=== PATIENT | female | born 1935 | race Caucasian/White ===

== ENCOUNTER 2016-11-04 09:58 | Outpatient (CLI) | payer MEDICARE, OTHER | END 2016-11-04 10:00 | LOC: LAB 09:58 | PROVIDERS: ATTEND Internal Medicine | DX: I82.599 Chronic embolism and thrombosis of other specified deep vein of unspecified lower extremity (principal); Z79.01 Long term (current) use of anticoagulants | CPT/HCPCS: 36415; 85610 ==

== ENCOUNTER 2016-11-29 09:25 | Outpatient (CLI) | payer MEDICARE, OTHER | END 2016-11-29 09:26 | LOC: LAB 09:25 | PROVIDERS: ATTEND Internal Medicine | DX: Z51.81 Encounter for therapeutic drug level monitoring (principal); Z79.01 Long term (current) use of anticoagulants; I82.599 Chronic embolism and thrombosis of other specified deep vein of unspecified lower extremity | CPT/HCPCS: 36415; 85610 ==

== ENCOUNTER 2016-12-27 13:17 | Outpatient (CLI) | payer MEDICARE, OTHER | END 2016-12-27 13:20 | LOC: LAB 13:17 | PROVIDERS: ATTEND Internal Medicine | DX: Z51.81 Encounter for therapeutic drug level monitoring (principal); Z79.01 Long term (current) use of anticoagulants; I82.599 Chronic embolism and thrombosis of other specified deep vein of unspecified lower extremity | CPT/HCPCS: 36415; 85610 ==

== ENCOUNTER 2017-02-24 10:02 | Outpatient (CLI) | payer MEDICARE, OTHER | END 2017-02-24 10:03 | LOC: LAB 10:02 | PROVIDERS: ATTEND Internal Medicine | DX: Z51.81 Encounter for therapeutic drug level monitoring (principal); Z79.01 Long term (current) use of anticoagulants; I82.599 Chronic embolism and thrombosis of other specified deep vein of unspecified lower extremity | CPT/HCPCS: 36415; 85610 ==

== ENCOUNTER 2017-03-21 09:22 | Outpatient (CLI) | payer MEDICARE, OTHER | END 2017-03-21 09:23 | LOC: LAB 09:22 | PROVIDERS: ATTEND Internal Medicine | DX: I82.599 Chronic embolism and thrombosis of other specified deep vein of unspecified lower extremity (principal); Z79.01 Long term (current) use of anticoagulants | CPT/HCPCS: 36415; 85610 ==

== ENCOUNTER 2017-04-04 09:13 | Outpatient (CLI) | payer MEDICARE, OTHER | END 2017-04-04 09:14 | LOC: LAB 09:13 | PROVIDERS: ATTEND Internal Medicine | DX: I82.599 Chronic embolism and thrombosis of other specified deep vein of unspecified lower extremity (principal); Z79.01 Long term (current) use of anticoagulants | CPT/HCPCS: 36415; 85610 ==

== ENCOUNTER 2017-05-01 09:45 | Outpatient (CLI) | payer MEDICARE, OTHER | END 2017-05-01 09:46 | LOC: LAB 09:45 | PROVIDERS: ATTEND Internal Medicine | DX: I82.599 Chronic embolism and thrombosis of other specified deep vein of unspecified lower extremity (principal); Z79.01 Long term (current) use of anticoagulants | CPT/HCPCS: 36415; 85610 ==

== ENCOUNTER 2017-05-30 09:20 | Outpatient (CLI) | payer MEDICARE, OTHER | END 2017-05-30 09:21 | LOC: LAB 09:20 | PROVIDERS: ATTEND Internal Medicine | DX: I82.599 Chronic embolism and thrombosis of other specified deep vein of unspecified lower extremity (principal); Z79.01 Long term (current) use of anticoagulants | CPT/HCPCS: 36415; 85610 ==

== ENCOUNTER 2017-07-02 10:20 | Outpatient (CLI) | payer MEDICARE, OTHER | END 2017-07-02 10:21 | LOC: LAB 10:20 | PROVIDERS: ATTEND Internal Medicine | DX: I82.599 Chronic embolism and thrombosis of other specified deep vein of unspecified lower extremity (principal); Z79.01 Long term (current) use of anticoagulants | CPT/HCPCS: 36415; 85610 ==

== ENCOUNTER 2017-07-24 13:14 | Outpatient (CLI) | payer MEDICARE, OTHER | END 2017-07-24 13:15 | LOC: LAB 13:14 | PROVIDERS: ATTEND Internal Medicine | DX: I82.599 Chronic embolism and thrombosis of other specified deep vein of unspecified lower extremity (principal); Z79.01 Long term (current) use of anticoagulants | CPT/HCPCS: 36415; 85610 ==

== ENCOUNTER 2017-08-22 09:40 | Outpatient (CLI) | payer MEDICARE, OTHER | END 2017-08-22 09:50 | LOC: LAB 09:40 | PROVIDERS: ATTEND Internal Medicine | DX: I82.599 Chronic embolism and thrombosis of other specified deep vein of unspecified lower extremity (principal); Z79.01 Long term (current) use of anticoagulants | CPT/HCPCS: 36415; 85610 ==

== ENCOUNTER 2017-09-04 13:29 | Outpatient (CLI) | payer MEDICARE, OTHER | END 2017-09-04 13:30 | LOC: LAB 13:29 | PROVIDERS: ATTEND Internal Medicine | DX: I82.599 Chronic embolism and thrombosis of other specified deep vein of unspecified lower extremity (principal); Z79.01 Long term (current) use of anticoagulants | CPT/HCPCS: 36415; 85610 ==

== ENCOUNTER → 2017-10-02 | Outpatient (CLI) | payer MEDICARE, OTHER | LOC: LAB 09:54 | PROVIDERS: ATTEND Internal Medicine | DX: I82.599 Chronic embolism and thrombosis of other specified deep vein of unspecified lower extremity (principal); Z79.01 Long term (current) use of anticoagulants | CPT/HCPCS: 36415; 85610 ==

== ENCOUNTER 2018-04-06 16:18 | Outpatient (CLI) | payer MEDICARE, OTHER | END 2018-04-06 16:20 | LOC: LABRHC 16:18 | PROVIDERS: ATTEND Family Medicine | DX: R30.0 Dysuria (principal) | CPT/HCPCS: 87086 ==

== ENCOUNTER 2019-04-23 08:59 | Outpatient (CLI) | payer MEDICARE, OTHER | END 2019-04-23 09:00 | LOC: LAB 08:59 | PROVIDERS: ATTEND Family Medicine | DX: N39.41 Urge incontinence (principal) | CPT/HCPCS: 87086 ==

== ENCOUNTER 2019-06-22 08:54 | Outpatient (CLI) | payer MEDICARE, OTHER ==
[2019-06-22 09:23] LABS: A1C 6.1 % (<5.7)
[2019-06-22 09:28] LABS: eGFR (Non-African) > 60
[2019-06-22 09:29] LABS: HDL 66 mg/dL (>40)
== END 2019-06-22 08:56 ==
LOC: LAB 08:54
PROVIDERS: ATTEND Family Medicine
DX: E11.9 Type 2 diabetes mellitus without complications (principal); R30.0 Dysuria
CPT/HCPCS: 36415; 80053; 80061; 83036; 87086

== ENCOUNTER 2019-08-24 08:38 | Outpatient (CLI) | payer MEDICARE, OTHER | END 2019-08-24 08:43 | LOC: LAB 08:38 | PROVIDERS: ATTEND Family Medicine | DX: R30.0 Dysuria (principal) | CPT/HCPCS: 87086 ==

== ENCOUNTER 2019-08-31 08:31 | Outpatient (CLI) | payer MEDICARE, OTHER | END 2019-08-31 08:36 | LOC: LAB 08:31 | PROVIDERS: ATTEND Specialist | DX: E78.5 Hyperlipidemia, unspecified (principal) | CPT/HCPCS: 36415; 80061 ==

== ENCOUNTER 2019-11-04 13:39 | Outpatient (CLI) | payer MEDICARE, OTHER ==
[2019-11-04 14:04] LABS: A1C 7.5 % (<5.7)
[2019-11-04 15:04] LABS: TSH 1.63 mIU/l (0.465-4.685)
== END 2019-11-04 13:44 ==
LOC: LAB 13:39
PROVIDERS: ATTEND Family Medicine
DX: E03.9 Hypothyroidism, unspecified (principal); E11.9 Type 2 diabetes mellitus without complications
CPT/HCPCS: 36415; 83036; 84443